=== PATIENT | male | born 1955 | race Caucasian/White ===

== ENCOUNTER 2017-10-12 08:56 | Emergency (ER) | payer BC ==
[~2017-10-12] VITALS: Ht 167.6 cm; Wt 68.1 kg
[~2017-10-12 08:56] MED LIST: AMIT75TA PO; GABA800T2 PO; GLYB5TAB3 PO; METF10002 PO; MORP15TA3 PO; MORP20CA17 PO; No meds per pt.
[2017-10-12] MEDS ORDERED: FAMOTIDINE 20 MG/2 ML IVP ONE (09:30)
[2017-10-12] MEDS ORDERED: SODIUM CHLORIDE FLUSH 10ML SYR IVF ONE (09:30)
[2017-10-12] MEDS ORDERED: SODIUM CHLORIDE 0.9% 1,000 ML IV ONE (09:30)
[2017-10-12] MEDS ORDERED: SODIUM CHLORIDE 0.9% 1,000ML IVBOLUS ONE ×2 (09:30→11:00)
[2017-10-12] MEDS ORDERED: ONDANSETRON 2MG/ML, 2ML IVPush ONE (09:30)
[2017-10-12] MEDS ORDERED: ONDANSETRON 2MG/ML, 2ML ONE (09:49)
[2017-10-12] MEDS ORDERED: FAMOTIDINE 20 MG/2 ML ONE (09:50)
[2017-10-12 10:14] LABS: BASOPHILS # (AUTO) 0.06 x10^3/uL (0-0.1); BASOPHILS % (AUTO) 1 % (0-1); EOSINOPHILS # (AUTO) 0.04 x10^3/uL (0-0.4); EOSINOPHILS % (AUTO) 0 % (1-7); LYMPHOCYTES # (AUTO) 1.48 x10^3/uL (1-3.4); LYMPHOCYTES % (AUTO) 14 % (22-44); MD NO; MEAN CORPUSCULAR HEMOGLOBIN 33.8 pg (27.5-34.5); MEAN CORPUSCULAR HGB CONC 34.1 g/dL (33.2-36.2); MEAN CORPUSCULAR VOLUME 98.9 fL (81-97); MEAN PLATELET VOLUME 7.4 fL (7.4-10.4); MONOCYTES % (AUTO) 6 % (2-9); NEUTROPHILS # (AUTO) 8.78 x10^3/uL (1.8-6.8); NEUTROPHILS % (AUTO) 80 % (42-75); PLATELET COUNT 346 x10^3/uL (130-400); RED CELL DISTRIBUTION WIDTH 12.4 % (9.4-14.8)
[2017-10-12 10:17] LABS: TROPONIN I < 0.015 ng/mL (0.000-0.045)
[2017-10-12 10:18] LABS: ACETONE, SERUM Small (20mg/dL) mg/dL (Negative)
[2017-10-12 10:25] LABS: ALANINE AMINOTRANSFERASE 22 U/L (12-78); ALBUMIN 4.1 g/dL (3.4-5.0); ANION GAP 16 mmol/L (5-15); CALCIUM 10.7 mg/dL (8.5-10.1); CHLORIDE 101 mmol/L (98-107); CREATININE 1.11 mg/dL (0.7-1.3)
[2017-10-12 10:27] LABS: ALKALINE PHOSPHATASE 116 U/L (45-117); BILIRUBIN,TOTAL 1.1 mg/dL (0.2-1.0); TOTAL PROTEIN 8.9 g/dL (6.4-8.2)
[2017-10-12] MEDS ORDERED: TRAM100T13 PO (10:54)
[2017-10-12] MEDS ORDERED: CARV3.122 PO (10:55)
[2017-10-12] MEDS ORDERED: VARE0.5T PO (10:55)
[2017-10-12 11:37] LABS: AMPHETAMINE SCREEN, URINE Negative (Negative); BARBITURATE SCREEN, URINE Negative (Negative); BENZODIAZEPINE SCREEN, URINE Negative (Negative); CANNABINOID SCREEN, URINE Positive (Negative); COCAINE SCREEN, URINE Negative (Negative); METHADONE SCREEN, URINE Negative (Negative); OPIATE SCREEN, URINE Negative (Negative)
[2017-10-12 12:02] LABS: MICROSCOPIC INDICATED
[2017-10-12 12:04] LABS: CULTURE INDICATED? NO
[2017-10-12 13:20] VITALS: BP 128/77
== END 2017-10-12 13:22 ==
LOC: ED 09:47
DX: K52.9 Noninfective gastroenteritis and colitis, unspecified (principal); E86.0 Dehydration; E87.2 Acidosis; E11.65 Type 2 diabetes mellitus with hyperglycemia
CPT/HCPCS: 36415; 74022; 80053; 80307; 81001; 82010; 82140; 83605; 83690; 84484; 85025; 87040; 93005; 96361; 96374; 96375; 99285; J2405; J7030; G0479; S0028

== ENCOUNTER → 2020-11-11 | Outpatient (CLI) | payer MEDICARE ==
[~2020-11-11] MED LIST changes: +CARV3.122 PO; -GABA800T2 PO; +GABA800T5 PO; +MORP-29 PO; -MORP15TA3 PO; +REGADENOSON 0.4 MG/5 ML SYRINGE ONE; +TRAM100T13 PO; +VARE0.5T PO
== END | disposition home or self-care (01) ==
LOC: CVU 06:47
PROVIDERS: ATTEND Internal Medicine Clinical Cardiac Electrophysiology
DX: I08.8 Other rheumatic multiple valve diseases (principal); E78.5 Hyperlipidemia, unspecified; I25.9 Chronic ischemic heart disease, unspecified; E13.9 Other specified diabetes mellitus without complications; F17.201 Nicotine dependence, unspecified, in remission; Z95.1 Presence of aortocoronary bypass graft
CPT/HCPCS: 93306; 93356; J2785

== ENCOUNTER 2020-11-12 12:05 | Outpatient (CLI) | payer MEDICARE | END 2020-11-12 23:59 | disposition home or self-care (01) | LOC: CFH 12:05 | PROVIDERS: ATTEND Internal Medicine Clinical Cardiac Electrophysiology | DX: I25.9 Chronic ischemic heart disease, unspecified (principal); E13.9 Other specified diabetes mellitus without complications; F17.201 Nicotine dependence, unspecified, in remission | CPT/HCPCS: 78452; 93017; A9502; J2785 ==

== ENCOUNTER → 2020-11-14 | Outpatient (CLI) | payer MEDICARE ==
[~2020-11-14] MED LIST changes: -REGADENOSON 0.4 MG/5 ML SYRINGE ONE
== END | disposition home or self-care (01) ==
LOC: CVU 07:51
PROVIDERS: ATTEND Internal Medicine Clinical Cardiac Electrophysiology
DX: I65.23 Occlusion and stenosis of bilateral carotid arteries (principal); I77.819 Aortic ectasia, unspecified site; I10 Essential (primary) hypertension; E78.5 Hyperlipidemia, unspecified; E13.9 Other specified diabetes mellitus without complications; I25.9 Chronic ischemic heart disease, unspecified; F17.201 Nicotine dependence, unspecified, in remission; Z95.1 Presence of aortocoronary bypass graft
CPT/HCPCS: 93880; 93922; 93978

== ENCOUNTER → 2021-04-27 | Outpatient (CLI) | payer MEDICARE ==
[~2021-04-27] MED LIST changes: +ASPI81TA45 PO; +ATOR40TA78 PO; +INSU100V8 SQ; +LISI5TAB7 PO; +OXYC5TAB98 PO
[2021-04-27 16:11] LABS: BASOPHILS % (AUTO) 1 % (0-1); EOSINOPHILS % (AUTO) 2 % (1-7); LYMPHOCYTES % (AUTO) 14 % (22-44); MEAN CORPUSCULAR HEMOGLOBIN 33.8 pg (27.5-34.5); MEAN CORPUSCULAR HGB CONC 34.3 g/dL (33.2-36.2); MEAN PLATELET VOLUME 7.2 fL (7.4-10.4); MONOCYTES % (AUTO) 6 % (2-9); NEUTROPHILS % (AUTO) 77 % (42-75); PLATELET COUNT 410 x10^3/uL (130-400); RED BLOOD COUNT 4.59 x10^6/uL (4.38-5.82); RED CELL DISTRIBUTION WIDTH 13.2 % (9.4-14.8)
[2021-04-27 16:13] LABS: HCT (SEDRATE) 43.9 % (39.2-51.8)
[2021-04-27 16:16] LABS: ALBUMIN 3.8 g/dL (3.4-5.0); CALCIUM 9.4 mg/dL (8.5-10.1)
[2021-04-27 16:18] LABS: INTERNATIONAL NORMALIZED RATIO 0.97 (0.93-1.1); PROTHROMBIN TIME 10.4 Seconds (9.6-11.5)
[2021-04-27 16:20] LABS: ALANINE AMINOTRANSFERASE 29 U/L (12-78); ALKALINE PHOSPHATASE 134 U/L (45-117); BILIRUBIN,TOTAL 0.4 mg/dL (0.2-1.0); CREATININE 0.81 mg/dL (0.7-1.3); TOTAL PROTEIN 7.5 g/dL (6.4-8.2)
[2021-04-27 16:35] LABS: ANION GAP 4 mmol/L (5-15); CHLORIDE 103 mmol/L (98-107)
== END | disposition home or self-care (01) ==
LOC: STAR 14:30
PROVIDERS: ATTEND Orthopaedic Surgery Orthopaedic Surgery of the Spine
DX: Z01.818 Encounter for other preprocedural examination (principal); M40.295 Other kyphosis, thoracolumbar region; I25.2 Old myocardial infarction; Z20.822 Contact with and (suspected) exposure to COVID-19
CPT/HCPCS: 36415; 71046; 80053; 83036; 85025; 85610; 85651; 85730; 93005; U0003; U0005